=== PATIENT | male | born 1985 | race Caucasian/White ===

== ENCOUNTER 2020-09-06 21:10 | Emergency (ER) | payer OTHER ==
[~2020-09-06] VITALS: Ht 185.4 cm; Wt 75.0 kg
[2020-09-06 21:19] VITALS: BP 133/83
[2020-09-06] MEDS ORDERED: ketorolac trometh inj. 60 MG/2 ML VIAL IM ONE (21:50)
[2020-09-06] MEDS ORDERED: pantoprazole 40mg Tablet.DR PO ONE (21:50)
[2020-09-06] MEDS ORDERED: ondansetron 4mg rapidly disintigrating tab PO ONE (21:50)
[2020-09-06] MEDS ORDERED: proCHLORperazine 10mg tablet PO ONE (21:50)
[2020-09-06] MEDS ORDERED: acetaminophen 325mg tablet PO ONE (21:50)
[2020-09-06] MEDS ORDERED: ONDA4TAB6 PO (21:52)
== END 2020-09-06 22:27 | disposition home or self-care (01) ==
LOC: ER 21:11
DX: B34.9 Viral infection, unspecified (principal); J02.9 Acute pharyngitis, unspecified; R19.7 Diarrhea, unspecified; R51.9 Headache, unspecified; R11.2 Nausea with vomiting, unspecified; Z20.828 Contact with and (suspected) exposure to other viral communicable diseases
CPT/HCPCS: 36415; 87635; 96372; 99284; J1885

== ENCOUNTER 2025-09-11 09:55 | Emergency (ER) | payer OTHER ==
[~2025-09-11] VITALS: Ht 185.4 cm; Wt 84.9 kg
[~2025-09-11 09:55] MED LIST: ONDA4TAB6 PO
[2025-09-11 10:00] VITALS: BP 125/84; PULSE 88; RESP 18; TEMP 97.8; O2SAT 98
--- NOTE | 2025-09-11 10:44 | Physician Documentation ---
History of Present Illness ~ Chief Complaint: Cold, cough & congestion Stated Complaint: SORE THROAT/SICK Primary Medical Doctor: NONE HPI This is a 40-year-old male who presents reporting feeling generally ill with cough and diarrhea. Medication Reconciliation Allergies: Coded Allergies: No Known Allergies (Unverified , 09/11/25) Scheduled Ondansetron Hcl (Zofran), 1-2 TAB PO Q6H Review of Systems ROS As stated above in the HPI, otherwise all systems are reviewed and negative. Physical Exam Vital Signs: Temperature: 97.8, Source: Temporal, Heart Rate: 88, Respiratory Rate: 18, BP: 125/84, Pulse Oximetry: 98, Weight: 84.900 Oxygen Flow Rate: 0 Physical Exam VITALS: Reviewed and as above. GENERAL: Alert, nontoxic appearing, no apparent distress. RESPIRATORY: No increased work of breathing, no respiratory distress, speaking in full clear sentences Progress Results/Orders Results/Orders Vital Signs 09/11/25 10:00 Temp 97.8 Pulse 88 Resp 18 B/P (MAP) 125/84 Pulse Ox 98 O2 Flow Rate 0 Medical Decision Making Additional information obtaine: N/A Findings MSE performed in triage and patient returned to ED lobby by nursing staff to await available ED room. Patient appears to have eloped from lobby Differential Dx:Considerations: Include: Allergic rhinitis, Influenza, Otitis media, Peritonsillar abscess, Pharyngitis-Diphtheria, Pharyngitis-Streptoccal, Pharyngitis-Viral, Pneumonia, Pnuemonitis, Sinusitis, URI Departure Disposition: 07 LEFT AWOL/ELOPED Impression: Primary Impression: Cough Qualified Codes: R05.1 - Acute cough Referrals: NO PRIMARY CARE PROVIDER (PCP) Signature Scribe Signature: No scribe Attestation: The note accurately reflects work and decisions made by me.SARA Moreland 09/14/25 01:01 JACOBO FINE Sep 11, 2025 10:44
== END 2025-09-11 11:34 | disposition left against medical advice (07) ==
LOC: ER 09:56
DX: R05.9 Cough, unspecified (principal); R19.7 Diarrhea, unspecified; Z79.899 Other long term (current) drug therapy
CPT/HCPCS: 99282